=== PATIENT | male | born 1990 | race Caucasian/White ===

== ENCOUNTER 2019-06-28 19:42 | Observation (INO) | payer BC ==
[~2019-06-28 19:42] MED LIST: ISOVUE-370 76%-LOCM 1 ML ONE
[2019-06-28 20:33] LABS: #Basophils 0.1 thou/uL (0.0-0.2); #Eosinphils 0.3 thou/uL (0.0-0.7); #Lymphocytes 2.1 thou/uL (1.20-3.40); #Monocytes 0.5 thou/uL (0.11-0.59); #Neutrophils 3.3 thou/uL (1.40-6.50); %Basophils 0.9 % (0.0-1.0); %Eosinophils 4.2 % (0.0-10.0); %Monocytes 7.7 % (0.0-10.0); %Neutrophils 53.1 % (42.0-75.0); Hemoglobin 16.4 g/dL (14.0-18.0); Mean Corpuscular Hemoglobin 29.6 pg (27.0-31.0); Mean Corpuscular Volume 84.7 fL (78.0-98.0); Mean Platelet Volume 7.9 fL (7.4-10.4); Platelet Count 212 thou/uL (130-400); RBC Distribution Width 11.6 % (11.5-14.5); Red Blood Cell (RBC) Count 5.53 mill/uL (4.70-6.10); White Blood Cell (WBC) Count 6.3 thou/uL (4.8-10.8)
[2019-06-28 20:39] LABS: INR-International Normal Ratio 0.9; PTT 29.3 SEC (22.9-36.1); Prothrombin Time 12.4 SEC (12.0-14.7)
[2019-06-28 20:48] LABS: ALT (SGPT) 30 U/L (8-55); AST (SGOT) 21 U/L (5-34); Albumin 4.6 g/dL (3.5-5.0); Alkaline Phosphatase 96 U/L (40-150); Anion Gap 13 mmol/L (10-20); BUN (Urea Nitrogen) 12 mg/dL (8.9-20.6); Bilirubin, Total 0.4 mg/dL (0.2-1.2); Calc. Creatinine Clearance 0 mL/min (70-130); Calcium 9.9 mg/dL (7.8-10.44); Carbon Dioxide 28 mmol/L (22-29); Chloride 102 mmol/L (98-107); Estimated GFR-MDRD Greater than 90; Globulin 3.1 g/dL (2.4-3.5); Glucose 94 mg/dL (70-105); Protein, Total 7.7 g/dL (6.0-8.3); Sodium 139 mmol/L (136-145)
--- NOTE | 2019-06-28 21:02 | CT ---
BRAIN CT WITHOUT IV CONTRAST: 06/28/19 HISTORY: Headache, dizziness, visual changes. FINDINGS: There is an approximately 3 cm diameter area of abnormal low attenuation change in the posterior righ t frontal lobe with some minimal associated volume loss evidence for an old infarct. No focal mass or midline shift. No acute hemorrhage. Sinuses and mastoids demonstrate some left maxillary sinus mucos al disease although the mastoids are clear. IMPRESSION: Old right posterior frontal infarct with minimal adjacent brain volume loss. Left maxillary sinus muc ashia disease. No acute hemorrhage or other acute process. Findings were discussed with Dr. Porras in the Emergency Room at 8:32 p.m. Code CR POS: PAULA
--- NOTE | 2019-06-28 21:20 | CT ---
CTA HEAD WITH IV CONTRAST AND 3D POSTPROCESSING CTA NECK WITH IV CONTRAST AND 3D POSTPROCESSING 06/28/19 HISTORY: Headache. FINDINGS/IMPRESSION: There is good flow in the carotid and vertebrobasilar systems on both sides. No major branch occlusio n, high grade stenosis or aneurysm formation is seen. Discussed over the telephone with ER physician, Dr. Porras at 9:03 p.m. POS: MICHELLE
--- NOTE | 2019-06-28 22:58 | PDOC.FPRHP ---
- History of Present Illness Chief Complaint: headache and blurred visoin in R eye History of Present Illness: 28 y/o M with a pmhx of ischemic stroke X5 years ago and PE, presents to the ED with a headache that came on suddenly earlier today. He states he sneezed and felt a "pop" in the right side of his head. This caused severe pain on the right side of head, and right eye pain. He c/o blurred vision, dizziness and slurred speech, that is better now. PT denies any confusion, or focal motor deficits/weakness. He states the headache was pulsating in character and now has alleviated almost completely. Pt had a negative CT brain in the ED. - Allergies/Adverse Reactions Allergies Allergy/AdvReac Type Severity Reaction Status Date / Time No Known Drug Allergies Allergy Verified 06/29/19 00:52 - History PMHx: Ischemic CVA X5 years ago. PE X5 years ago in same hospitalization No hx of clotting d/o, states he has been worked up and nothing found. PSHx: none FHx: NO hx of clotting d/o Social: denies smoking tobacco, etoh, or drug use. Quit e-cig X1 week ago. past X2 year smoking hx in college - Review of Systems General: denies: fever/chills Eyes: reports: eye pain (right eye), vision changes (R eye) ENT: reports: nasal congestion, rhinorrhea Respiratory: reports: cough, congestion. denies: shortness of breath, exercise intolerance Cardiovascular: denies: chest pain, palpitation, edema Gastrointestinal: reports: nausea, vomiting. denies: diarrhea, abdominal pain Genitourinary: denies: incontinence Skin: denies: rashes, jaundice Musculoskeletal: denies: pain Neurological: denies: numbness, syncope, seizure, weakness - Vital signs BP: 112/64 HR: 62 RR: 16 Tmax: 99.5 Pox: 98% on RA Wt: 112.85 kg - Physical Exam Constitutional: NAD, awake, alert and oriented, well developed HEENT: normocephalic and atraumatic, PERRLA (R pupil 4 mm, L pupil 3 mm.), EOMI , conjunctiva clear, no scleral icterus, grossly normal hearing, MMM, oropharynx clear, good dention Neck: supple, FROM, trachea midline, no LAD, no JVD Heart: RRR, normal S1/S2, no murmurs/rubs/gallops, pulses present, no edema Lungs: CTAB, no respiratory distress, good air movement, no rales/rhonchi, no wheezing, no retractions Abdomen: soft, non-tender, bowel sounds present, no masses/distention, no hernias Musculoskeletal: normal structure, normal tone, ROM grossly normal Neurological: no focal deficit, CN II-XII intact (R pupil 4 mm, L pupil 3 mm both PERRLA), normal sensation, DTRs 2+ -Neurological: no dysphagia or dysarthria Normal yhzl-ta-punt bilaterally. No dysdiadochokinesia bilaterally Skin: no rash/lesions, good turgor, capillary refill <2 seconds, no jaundice Heme/Lymphatic: no unusual bruising or bleeding, no purpura, no petechia Psychiatric: normal mood and affect, good judgment and insight, intact recent and remote memory FMR H&P: Results - Labs Result Diagrams: 06/28/19 20:22 06/28/19 20:22 Lab results: WBC 6.3 thou/uL (4.8-10.8) 06/28/19 20:22 Hgb 16.4 g/dL (14.0-18.0) 06/28/19 20:22 Hct 46.8 % (42.0-52.0) 06/28/19 20:22 MCV 84.7 fL (78.0-98.0) 06/28/19 20:22 Plt Count 212 thou/uL (130-400) 06/28/19 20:22 Neutrophils % 53.1 % (42.0-75.0) 06/28/19 20:22 Sodium 139 mmol/L (136-145) 06/28/19 20:22 Potassium 4.0 mmol/L (3.5-5.1) 06/28/19 20:22 Chloride 102 mmol/L (98-107) 06/28/19 20:22 Carbon Dioxide 28 mmol/L (22-29) 06/28/19 20:22 BUN 12 mg/dL (8.9-20.6) 06/28/19 20:22 Creatinine 0.93 mg/dL (0.7-1.3) 06/28/19 20:22 Glucose 94 mg/dL (70-105) 06/28/19 20:22 Calcium 9.9 mg/dL (7.8-10.44) 06/28/19 20:22 Total Bilirubin 0.4 mg/dL (0.2-1.2) 06/28/19 20:22 AST 21 U/L (5-34) 06/28/19 20:22 ALT 30 U/L (8-55) 06/28/19 20:22 Alkaline Phosphatase 96 U/L (40-150) 06/28/19 20:22 Creatine Kinase 108 U/L (30-200) 06/28/19 20:22 Serum Total Protein 7.7 g/dL (6.0-8.3) 06/28/19 20:22 Albumin 4.6 g/dL (3.5-5.0) 06/28/19 20:22 - Radiology Interpretation CT scan - head Status: report reviewed by me (no hemorrhage. Old R frontal infarct. L- maxillary sinus mucosa disease.) FMR H&P: A/P - Problem List (1) TIA (transient ischemic attack) Current Visit: Yes Status: Suspected Code(s): G45.9 - TRANSIENT CEREBRAL ISCHEMIC ATTACK, UNSPECIFIED (2) Headache Current Visit: Yes Status: Acute Code(s): R51 - HEADACHE (3) Left maxillary sinus opacification Current Visit: Yes Status: Acute Code(s): R93.0 - ABNORMAL FINDINGS ON DX IMAGING OF SKULL AND HEAD, NEC - Plan 28 y/o admitted to Stroke Observation floor for evaluation of TIA and acute headache. 1. TIA - Resolved symptoms of dysarthria, and blurred vision - Ordered MRI 2. Acute Headache - Acute TIA vs Sinusitis - Tylenol for pain control 3. Sudden onset right eye pain - Right pupil is 4 mm left pupil is 3 mm in size. PERRLA. - vision is back to normal 4. L maxillary sinusitis - could be the cause of headache, but cannot rule out TIA 5. Hx of Ischemic CVA X5 years ago - Pt was on coumadin for X6 months post CVA. - Pt states all previous coagulation disorder workup negative - Coagulation disorder workup warranted 6. Hx of Pulmonary embolus X5 years ago Code status: full code DVT PPX: SCD's Disposition/LOS: admitted to stroke observation stable FMR H&P: Upper Level - Plan Date/Time: 06/28/19 1198 I, [], have evaluated this patient and agree with findings/plan as outlined by internal control consultant resident. Pertinent changes/additions are listed here.
[2019-06-28] MEDS ORDERED: Aspirin 325 MG TAB ONE (23:20)
[2019-06-29] MEDS ORDERED: Acetaminophen 325 MG TAB PO PRN (00:09)
[2019-06-29 00:53] VITALS: BMI 35.6
[2019-06-29 05:40] LABS: Cardiac Risk 2.6 (Less than 4.5)
--- NOTE | 2019-06-29 06:33 | PDOC.FM ---
- Subjective Subjective: Patient was resting comfortably this morning. No new symptoms. Headache has resolved. - Objective MAR Reviewed: Yes Vital Signs & Weight: Vital Signs (12 hours) Temp Pulse Resp BP Pulse Ox 06/29/19 03:25 97.9 F 59 L 16 100/57 L 98 06/28/19 22:36 99.5 F 62 16 112/64 98 Weight Weight 112.854 kg I&O: 06/27/19 06/28/19 06/29/19 06:59 06:59 06:59 Intake Total 100 Balance 100 Result Diagrams: 06/28/19 20:22 06/28/19 20:22 Radiology Reviewed by me: Yes (MRI was negative. Evidence of prior hemorrhagic stroke. Recommend rpt 3-6mo) Phys Exam - Physical Examination Constitutional: NAD HEENT: PERRLA, moist MMs, sclera anicteric Neck: no nodes, supple, full ROM Respiratory: no wheezing, no rales, no rhonchi, clear to auscultation bilateral Cardiovascular: RRR, no significant murmur, no rub Gastrointestinal: soft, non-tender, no distention, positive bowel sounds Musculoskeletal: no edema, pulses present Neurological: non-focal, normal sensation, moves all 4 limbs Psychiatric: normal affect, A&O x 3 Skin: no rash, normal turgor, cap refill <2 seconds Dx/Plan - Plan Plan: 28 y/o admitted to Stroke Observation floor for evaluation of TIA and acute headache. TIA, rule out. - Resolved symptoms of dysarthria, and blurred vision - MRI negative. Evidence of prior hemorrhagic stroke. Acute Headache, resolved Sudden onset right eye pain, resolved L maxillary sinusitis - could be the cause of headache, but cannot rule out TIA Hx of Ischemic CVA X5 years ago - Pt was on coumadin for X6 months post CVA. - Pt states all previous coagulation disorder workup negative - Coagulation disorder workup warranted Hx of Pulmonary embolus X5 years ago Dispo: Stable, observation Code status: full code DVT PPX: SCD's
[2019-06-29] MEDS ORDERED: Aspirin 81 mg Enteric Coated Tablet PO SCH (09:00)
--- NOTE | 2019-06-29 09:43 | MRI ---
BRAIN MRI WITHOUT CONTRAST: Date: 06/29/19 COMPARISON: None. HISTORY: Headache, dizziness, and visual changes. TECHNIQUE: Multiplanar, multisequence MR imaging of the brain provided without contrast. FINDINGS: Diffusion-weighted imaging demonstrates no evidence for acute infarction. There is mucosal thickening involving bilateral maxillary sinuses, left greater than right. Arterial flow-voids at the axial level of the skull base appear grossly unremarkable on the T2-weight ed imaging. On the gradient echo imaging, there is no evidence for intracranial hemorrhage. There is a focal area of signal abnormality within the frontal lobe on the right at the axial level o f the frontal horns of the right lateral ventricle. This focal area of abnormal signal intensity is h eterogeneously hypointense on the T1-weighted imaging and it is hypointense on FLAIR centrally with a peripheral rim of T2 and FLAIR hyperintensity. On T2-weighted imaging, this area is markedly hyperin tense. The gradient echo imaging demonstrates a subtle rim of blooming artifact suggesting peripheral blood products. No significant midline shift or mass effect. IMPRESSION: 1. No evidence for acute infarction. 2. 2.6 cm area of abnormal intra-axial signal intensity within the frontal lobe on the right. This i s felt to most likely be the sequelae of a prior hemorrhagic infarction, as the patient reports hemo rrhagic stroke in 2014 per the provided nodes. As no comparison imaging is available, recommend a fo llow-up brain MRI in 3-6 months, unless a prior examination can be provided to document stability. POS: OFF
[2019-06-29 11:10] LABS: Amphetamine Not Detected (NotDetected); Barbiturates Screen Not Detected (NotDetected); Benzodiazepine Screen Not Detected (NotDetected); Cocaine Metabolite Screen Not Detected (NotDetected); Medtox Control Line Valid? VALID (VALID); Medtox Reader # READER 4; Methadone Not Detected (NotDetected); Methamphetamine Not Detected (NotDetected); Opiate Screen Not Detected (NotDetected); Oxycodone Screen Not Detected (NotDetected); Phencyclidine (PCP) Not Detected (NotDetected); THC/Cannabinoid Screen Not Detected (NotDetected); Tricyclic Screen Not Detected (NotDetected)
[2019-06-29 11:47] VITALS: BP 129/71; TEMP 98.9
--- NOTE | 2019-06-29 11:52 | PRG ---
DATE OF SERVICE: 06/29/2019 Winston is a pleasant 28-year-old man who was admitted with TIA type symptoms. He had a history of hemorrhagic stroke from what sounds like ruptured aneurysm in 2013 in [facility]. This morning, he looks and feels much better. An MRI shows no evidence of an acute infarction. There is a 2.6 cm area of abnormality within the frontal lobe on the right side. This is felt to be sequelae of prior hemorrhagic infarct as stated previously that the patient had in 2013. He is recommended that he have a followup brain MRI in 3 to 6 months. In the event clinically, he looks and feels much better and will be discharged later today. Job ID: [id number]
--- NOTE | 2019-06-29 12:26 | HP ---
HISTORY OF PRESENT ILLNESS: I have examined the patient. I have discussed the case with Dr. Cristela Stubbs and agree with her assessment and plan. Briefly, Dave is a pleasant 28-year-old man with a history of hemorrhagic stroke in 2013, who presented with a "popping noise" in his head after a sneeze. This was followed by throbbing pain and right eye visual blurriness. The patient reports that these symptoms have resolved with time. PHYSICAL EXAMINATION: GENERAL: This morning, he is awake, alert, in no distress. No visual disturbances. EARS, NOSE, AND THROAT: No erythema or exudate. CARDIAC: Heart rhythm and regular. No gallop or murmur noted. LUNGS: Clear. No rales or wheezes. ABDOMEN: Flat and soft without guarding or rebound. NEUROLOGIC: No focal deficits. His vision seems to be grossly intact. LABORATORY DATA: CBC; white count is 6300, hemoglobin is 16.4, hematocrit 46.8 with an MCV of 84.7. Chemistries; sodium 139, potassium 4, chloride 102, bicarb 28, BUN 12, and creatinine 0.93. Liver enzymes normal. ASSESSMENT: Possible transient ischemic attack. PLAN: We will admit, perform CTA, head CT and MRI. Clinically, the patient has improved and stable. Job ID: [id number]
[2019-06-29] MEDS ORDERED: Atorvastatin Calcium 40 MG TAB PO SCH (21:00)
--- NOTE | 2019-07-03 08:27 | DIS ---
DATE OF ADMISSION: 06/28/2019 DATE OF DISCHARGE: 06/29/2019 RESIDENT: Didi Weaver MD CONSULTS: None. PROCEDURES: None. PRIMARY DIAGNOSIS: Transient ischemic attack. SECONDARY DIAGNOSIS: 1. Sinus infection. 2. Acute headache. 3. Sudden onset right eye pain. 4. History of hemorrhagic cerebrovascular accident. 5. History of pulmonary embolus. DISCHARGE MEDICATIONS: None. DISCONTINUED MEDICATIONS: None. HISTORY OF PRESENT ILLNESS: This is a 28-year-old male with a past medical history of hemorrhagic stroke in 2014 with subsequent pulmonary embolism. He presented for acute onset of headache and a popping noise that he heard after he sneezed. He reports throbbing pain and right eye visual blurriness. With his past medical history, he was concerned that he may be having another stroke and decided to come to the ER. He states that his symptoms have fully resolved since arrival. He denies any confusion, neuro deficits or weaknesses, or further headache. In the ED, he had a CT angio and a brain CT, both of which were negative. He had an MRI, which showed no acute changes, and a 2.6 cm area of abnormal intraaxial intensity within the frontal lobe on the right most likely a result of a prior hemorrhagic infarction. Recommended repeat MRI in 3 to 6 months. Overnight, his headache resolved. He never exhibited any focal signs of neurological deficits. He was discharged in stable condition. DISPOSITION: Stable. DISCHARGE INSTRUCTIONS: 1. Location: Home. 2. Diet: Regular. 3. Activity: Ad alexis. 4. Followup: With primary care physician in a month. Job ID: [id number] MTDD
--- NOTE | 2019-07-07 01:27 | EKG ---
Test Reason : Blood Pressure : / mmHG Vent. Rate : 086 BPM Atrial Rate : 086 BPM P-R Int : 146 ms QRS Dur : 080 ms QT Int : 358 ms P-R-T Axes : 043 029 018 degrees QTc Int : 428 ms Normal sinus rhythm Normal ECG Confirmed by TERRENCE NAVARRO ([id number]), fan mail editor YENNIFER HENLEY ([id number]) on 07/07/2019 1:27:06 AM Referred By: Confirmed By:TERRENCE NAVARRO
== END 2019-06-29 13:05 | disposition home or self-care (01) ==
LOC: ERS 19:42 → 2SE 21:42
PROVIDERS: ADMIT Family Medicine; ATTEND Family Medicine
DX: G45.9 Transient cerebral ischemic attack, unspecified (principal); J32.0 Chronic maxillary sinusitis; H57.11 Ocular pain, right eye; H53.8 Other visual disturbances; Z86.711 Personal history of pulmonary embolism; Z86.73 Personal history of transient ischemic attack (TIA), and cerebral infarction without residual deficits; Z87.891 Personal history of nicotine dependence
CPT/HCPCS: 36415; 36416; 70450; 70496; 70498; 70551; 80053; 80061; 80306; 82550; 84484; 85025; 85610; 85652; 85730; 93005; 96360; G0378; Q9966

== ENCOUNTER 2020-01-16 13:10 | Emergency (ER) | payer BC ==
--- NOTE | 2020-01-16 13:44 | RAD ---
EXAM: Chest one view: HISTORY: Chest pain COMPARISON: None FINDINGS: Heart size: Within normal limits. Lungs: Clear of acute process. No evidence for confluent pneumonia, pleural effusion, acute edema, or pneumothorax, or other signifi cant acute process. IMPRESSION: No significant acute intrathoracic disease.
[2020-01-16] MEDS ORDERED: Aspirin Chewable 81 MG TAB ONE (13:47)
[2020-01-16 13:49] LABS: #Eosinphils 0.1 thou/uL (0.0-0.7); #Lymphocytes 1.5 thou/uL (1.20-3.40); #Monocytes 0.4 thou/uL (0.11-0.59); #Neutrophils 3.3 thou/uL (1.40-6.50); %Basophils 0.3 % (0.0-1.0); %Eosinophils 1.6 % (0.0-10.0); %Lymphocytes 28.7 % (21.0-51.0); %Monocytes 8.2 % (0.0-10.0); %Neutrophils 61.3 % (42.0-75.0); Hemoglobin 15.5 g/dL (14.0-18.0); Mean Corpuscular HGB CONC 33.9 g/dL (32.0-36.0); Mean Corpuscular Volume 85.6 fL (78.0-98.0); Mean Platelet Volume 8.4 fL (7.4-10.4); Platelet Count 207 thou/uL (130-400); RBC Distribution Width 11.8 % (11.5-14.5); Red Blood Cell (RBC) Count 5.35 mill/uL (4.70-6.10); White Blood Cell (WBC) Count 5.3 thou/uL (4.8-10.8)
[2020-01-16] MEDS ORDERED: Iopamidol 370 76% 100 ML VIAL ONE (13:55)
[2020-01-16 14:10] LABS: ALT (SGPT) 31 U/L (8-55); AST (SGOT) 17 U/L (5-34); Albumin 4.4 g/dL (3.5-5.0); Alkaline Phosphatase 82 U/L (40-110); Anion Gap 12 mmol/L (10-20); BUN (Urea Nitrogen) 9 mg/dL (8.9-20.6); Bilirubin, Total 0.7 mg/dL (0.2-1.2); CK (CPK) 110 U/L (30-200); Calc. Creatinine Clearance 0 mL/min (70-130); Calcium 9.2 mg/dL (7.8-10.44); Carbon Dioxide 23 mmol/L (22-29); Chloride 108 mmol/L (98-107); Estimated GFR-MDRD Greater than 90; Globulin 2.6 g/dL (2.4-3.5); Glucose 88 mg/dL (70-105); Lipase 9 U/L (8-78); Potassium 3.7 mmol/L (3.5-5.1); Sodium 139 mmol/L (136-145)
--- NOTE | 2020-01-16 15:23 | CT ---
CT PULMONARY ANGIOGRAM WITH IV CONTRAST AND 3D POST PROCESSING: HISTORY: Chest pain. FINDINGS: There is good contrast opacification of the pulmonary arterial vasculature without filling defects to suggest pulmonary embolism. No aneurysmal dilatation of the thoracic aorta is seen. No pleural or pericardial effusions are identified. No pneumothoraces, lobar consolidation, or lung nodule/masses are identified. Bony structures are unremarkable. Upper abdominal tomograms demonstrate a tiny nono bstructing left renal calculus. IMPRESSION: No CT evidence of pulmonary embolism. POS: [facility]
[2020-01-16 17:06] LABS: Troponin I Less than 0.010 ng/mL (< 0.028)
== END 2020-01-16 17:55 | disposition home or self-care (01) ==
LOC: ERS 13:10
DX: R07.9 Chest pain, unspecified (principal); F17.290 Nicotine dependence, other tobacco product, uncomplicated; Z86.73 Personal history of transient ischemic attack (TIA), and cerebral infarction without residual deficits
CPT/HCPCS: 36415; 71045; 71275; 80053; 82550; 83690; 84484; 85025; 85379; 93005; Q9967

== ENCOUNTER 2021-01-11 13:53 | Emergency (ER) | payer OTHER ==
[~2021-01-11 13:53] MED LIST changes: -ISOVUE-370 76%-LOCM 1 ML ONE; +Iopamidol-370 76% 500 ML 1 ML ONE
[2021-01-11 14:22] LABS: #Lymphocytes 0.4 thou/uL (1.20-3.40); #Monocytes 0.4 thou/uL (0.11-0.59); #Neutrophils 11.4 thou/uL (1.40-6.50); %Basophils 0.3 % (0.0-1.0); %Eosinophils 0.1 % (0.0-10.0); %Lymphocytes 3.4 % (21.0-51.0); %Monocytes 3.5 % (0.0-10.0); %Neutrophils 92.6 % (42.0-75.0); Hemoglobin 17.5 g/dL (14.0-18.0); Mean Corpuscular HGB CONC 34.3 g/dL (32.0-36.0); Mean Corpuscular Hemoglobin 29.3 pg (27.0-31.0); Mean Corpuscular Volume 85.5 fL (78.0-98.0); Mean Platelet Volume 8.6 fL (7.4-10.4); Platelet Count 203 thou/uL (130-400); Red Blood Cell (RBC) Count 5.96 mill/uL (4.70-6.10); White Blood Cell (WBC) Count 12.3 thou/uL (4.8-10.8)
[2021-01-11] MEDS ORDERED: Acetaminophen 325 MG TAB ONE (14:24)
[2021-01-11] MEDS ORDERED: diphenhydrAMINE 50 MG/ML VIAL ONE (14:24)
[2021-01-11] MEDS ORDERED: Metoclopramide 10 MG/10 ML UDCUP ONE (14:24)
[2021-01-11] MEDS ORDERED: Piperacillin/Tazobactam 2.25 GM VIAL ONE (14:24)
[2021-01-11] MEDS ORDERED: Ketorolac Tromethamine 30 MG/ML VIAL ONE (14:24)
[2021-01-11] MEDS ORDERED: Piperacillin/Tazobactam 4.5 GM VIAL ONE (14:27)
[2021-01-11] MEDS ORDERED: Metoclopramide HCl 10 MG/2 ML VIAL ONE (14:27)
[2021-01-11 14:29] LABS: PTT 26.8 sec (22.9-36.1); Prothrombin Time 13.6 sec (12.0-14.7)
[2021-01-11 14:44] LABS: ALT (SGPT) 51 U/L (8-55); AST (SGOT) 23 U/L (5-34); Albumin 4.5 g/dL (3.5-5.0); Alkaline Phosphatase 101 U/L (40-110); Anion Gap 14 mmol/L (10-20); BUN (Urea Nitrogen) 16 mg/dL (8.9-20.6); Bilirubin, Total 0.8 mg/dL (0.2-1.2); Calc. Creatinine Clearance 0 mL/min (70-130); Calcium 9.5 mg/dL (7.8-10.44); Carbon Dioxide 24 mmol/L (22-29); Chloride 104 mmol/L (98-107); Globulin 3.8 g/dL (2.4-3.5); Glucose 127 mg/dL (70-105); Lipase 12 U/L (8-78); Potassium 4.1 mmol/L (3.5-5.1); Protein, Total 8.3 g/dL (6.0-8.3); Sodium 138 mmol/L (136-145)
[2021-01-11 15:09] LABS: Bacteria/HPF None Seen HPF (None Seen); Bilirubin Negative (Negative); Blood, Urine Negative (Negative); Clarity Clear (Clear); Glucose, Urine (Dipstick) Normal (Negative); Ketone, Urine Trace mg/dL (Negative); Leukocyte Negative Leu/uL (Negative); Nitrite Negative (Negative); Protein, Urine (Dipstick) 30 mg/dL (Neg-Trace); RBC/HPF 0-3 HPF (0-3); Specific Gravity, Urine 1.029 (1.002-1.036); Squamous Epithelial 0-3 HPF (0-3); Urobilinogen Normal mg/dL (Less than 2); WBC/HPF 0-3 HPF (0-3)
== END 2021-01-11 16:28 | disposition home or self-care (01) ==
LOC: ERS 13:53
DX: K52.9 Noninfective gastroenteritis and colitis, unspecified (principal); Z86.73 Personal history of transient ischemic attack (TIA), and cerebral infarction without residual deficits; Z87.891 Personal history of nicotine dependence
CPT/HCPCS: 70450; 71045; 74177; 80053; 81003; 81015; 83605; 83690; 84484; 85025; 85610; 85730; 87086; 93005; 94760; 96365; 96375; J1200; J1885; J2543; J2765; Q9967

== ENCOUNTER 2021-01-14 12:04 | Emergency (ER) | payer OTHER ==
[2021-01-14 12:59] LABS: Mean Corpuscular HGB CONC 34.4 g/dL (32.0-36.0); Mean Corpuscular Hemoglobin 29.6 pg (27.0-31.0); Mean Corpuscular Volume 85.8 fL (78.0-98.0); Mean Platelet Volume 7.9 fL (7.4-10.4); Platelet Count 187 thou/uL (130-400); RBC Distribution Width 11.7 % (11.5-14.5); Red Blood Cell (RBC) Count 5.41 mill/uL (4.70-6.10); White Blood Cell (WBC) Count 2.6 thou/uL (4.8-10.8)
[2021-01-14] MEDS ORDERED: Dexamethasone 10 MG/ML VIAL ONE (13:14)
[2021-01-14 13:22] LABS: ALT (SGPT) 32 U/L (8-55); AST (SGOT) 22 U/L (5-34); Albumin 4.1 g/dL (3.5-5.0); Alkaline Phosphatase 77 U/L (40-110); Anion Gap 13 mmol/L (10-20); BUN (Urea Nitrogen) 7 mg/dL (8.9-20.6); Bilirubin, Total 0.5 mg/dL (0.2-1.2); CK (CPK) 96 U/L (30-200); Calc. Creatinine Clearance 0 mL/min (70-130); Carbon Dioxide 25 mmol/L (22-29); Chloride 105 mmol/L (98-107); Globulin 3.5 g/dL (2.4-3.5); Glucose 96 mg/dL (70-105); Lipase 8 U/L (8-78); Potassium 3.9 mmol/L (3.5-5.1); Protein, Total 7.6 g/dL (6.0-8.3); Sodium 139 mmol/L (136-145)
[2021-01-14 13:34] LABS: Band 21 % (5-11); Large Platelets SLIGHT; Lymphocytes 29 % (21-51); MDiff Complete? YES; Monocytes 13 % (0-10); Neutrophil 35 % (42-75); Platelet Morphology Comment Appears Adequate; RBC Morphology Normal; Reactive Lymphocytes 2 % (0-10)
== END 2021-01-14 14:25 | disposition home or self-care (01) ==
LOC: ERS 12:04
DX: J02.9 Acute pharyngitis, unspecified (principal); M79.10 Myalgia, unspecified site; Z20.822 Contact with and (suspected) exposure to COVID-19; Z86.73 Personal history of transient ischemic attack (TIA), and cerebral infarction without residual deficits; Z87.891 Personal history of nicotine dependence
CPT/HCPCS: 71045; 80053; 82550; 83690; 83880; 84484; 85025; 85379; 93005; 96374; J1100

== ENCOUNTER 2021-01-26 11:45 | Inpatient (IN) | payer OTHER ==
[2021-01-26 12:31] LABS: #Lymphocytes 1.3 thou/uL (1.20-3.40); #Monocytes 0.8 thou/uL (0.11-0.59); #Neutrophils 6.4 thou/uL (1.40-6.50); %Basophils 0.2 % (0.0-1.0); %Eosinophils 0.3 % (0.0-10.0); %Lymphocytes 15.3 % (21.0-51.0); %Monocytes 9.7 % (0.0-10.0); %Neutrophils 74.4 % (42.0-75.0); Hemoglobin 15.1 g/dL (14.0-18.0); Mean Corpuscular HGB CONC 32.9 g/dL (32.0-36.0); Mean Corpuscular Hemoglobin 27.8 pg (27.0-31.0); Mean Corpuscular Volume 84.4 fL (78.0-98.0); Mean Platelet Volume 8.4 fL (7.4-10.4); Platelet Count 239 thou/uL (130-400); RBC Distribution Width 11.4 % (11.5-14.5); Red Blood Cell (RBC) Count 5.44 mill/uL (4.70-6.10); White Blood Cell (WBC) Count 8.7 thou/uL (4.8-10.8)
[2021-01-26 12:43] LABS: ALT (SGPT) 23 U/L (8-55); AST (SGOT) 13 U/L (5-34); Albumin 4.1 g/dL (3.5-5.0); Alkaline Phosphatase 92 U/L (40-110); Anion Gap 12 mmol/L (10-20); BUN (Urea Nitrogen) 6 mg/dL (8.9-20.6); Bilirubin, Total 1.3 mg/dL (0.2-1.2); Calc. Creatinine Clearance 0 mL/min (70-130); Calcium 9.1 mg/dL (7.8-10.44); Carbon Dioxide 25 mmol/L (22-29); Chloride 105 mmol/L (98-107); Globulin 3.8 g/dL (2.4-3.5); Glucose 104 mg/dL (70-105); Potassium 3.9 mmol/L (3.5-5.1); Protein, Total 7.9 g/dL (6.0-8.3); Sodium 138 mmol/L (136-145)
[2021-01-26] MEDS ORDERED: Morphine 4 MG/ML VIAL ONE ×2 (12:49→15:01)
[2021-01-26 12:55] LABS: INR-International Normal Ratio 1.1; PTT 31.3 sec (22.9-36.1); Prothrombin Time 14.4 sec (12.0-14.7)
[2021-01-26] MEDS ORDERED: Dexamethasone 10 MG/ML VIAL ONE (15:01)
[2021-01-26] MEDS ORDERED: Enoxaparin Sodium 60 MG/0.6 ML SYRINGE ONE (15:01)
[2021-01-26] MEDS ORDERED: Senokot S 8.6-50 MG TAB PO PRN (15:03)
[2021-01-26] MEDS ORDERED: Acetaminophen 325 MG TAB PO PRN (15:03)
[2021-01-26 15:36] LABS: Troponin I 0.011 ng/mL (< 0.028)
[2021-01-26] MEDS ORDERED: Thiamine 100 MG TAB PO SCH (16:00)
[2021-01-26] MEDS ORDERED: Zinc Sulfate 220 MG CAP PO SCH (16:00)
[2021-01-26] MEDS ORDERED: Cholecalciferol 1,000 UNITS (25 MCG) TAB PO SCH (16:00)
[2021-01-26] MEDS ORDERED: Ascorbic Acid 500 mg Chewable Tablet PO SCH (16:00)
[2021-01-26 16:27] LABS: Lactic Acid 0.7 mmol/L (0.5-2.2)
[2021-01-26 18:13] VITALS: BMI 37.2
[2021-01-26] MEDS: Lidocaine 5% Patch TD SCH (18:22)
[2021-01-26] MEDS: Sodium Chloride 0.9% 1,000 ML IV SCH (18:22)
[2021-01-26 18:29] LABS: Troponin I Less than 0.010 ng/mL (< 0.028)
[2021-01-26] MEDS: Famotidine/PF 20 mg/2ml Vial SLOW IVP SCH (21:01)
[2021-01-26] MEDS: HYDROcodone/Acetaminophen 5/325 mg Tablet PO PRN (21:06)
[2021-01-26] MEDS ORDERED: Morphine 2 MG/ML VIAL SLOW IVP SCH (23:00)
[2021-01-27] MEDS: Enoxaparin Sodium 120 MG/0.8 ML SYRINGE SC SCH ×2 (02:11→15:07)
[2021-01-27] MEDS: Sodium Chloride 0.9% 1,000 ML IV SCH ×3 (02:11→22:12)
[2021-01-27 05:04] LABS: #Basophils 0.2 thou/uL (0.0-0.2); #Lymphocytes 0.7 thou/uL (1.20-3.40); #Monocytes 0.9 thou/uL (0.11-0.59); #Neutrophils 9.1 thou/uL (1.40-6.50); %Basophils 1.6 % (0.0-1.0); %Monocytes 8.2 % (0.0-10.0); %Neutrophils 84.2 % (42.0-75.0); Hemoglobin 13.5 g/dL (14.0-18.0); Mean Corpuscular HGB CONC 33.5 g/dL (32.0-36.0); Mean Corpuscular Hemoglobin 28.3 pg (27.0-31.0); Mean Corpuscular Volume 84.4 fL (78.0-98.0); Mean Platelet Volume 8.2 fL (7.4-10.4); Platelet Count 216 thou/uL (130-400); RBC Distribution Width 11.1 % (11.5-14.5); Red Blood Cell (RBC) Count 4.78 mill/uL (4.70-6.10); White Blood Cell (WBC) Count 10.8 thou/uL (4.8-10.8)
[2021-01-27] MEDS: Transdermal Patch Removal TOP SCH (05:21)
[2021-01-27 05:26] LABS: Anion Gap 11 mmol/L (10-20); BUN (Urea Nitrogen) 8 mg/dL (8.9-20.6); Calc. Creatinine Clearance 240 mL/min (70-130); Calcium 8.7 mg/dL (7.8-10.44); Carbon Dioxide 23 mmol/L (22-29); Chloride 105 mmol/L (98-107); Glucose 153 mg/dL (70-105); Potassium 4.2 mmol/L (3.5-5.1); Sodium 135 mmol/L (136-145)
[2021-01-27] MEDS: Ascorbic Acid 500 mg Chewable Tablet PO SCH (08:49)
[2021-01-27] MEDS: Zinc Sulfate 220 MG CAP PO SCH (08:50)
[2021-01-27] MEDS: Famotidine/PF 20 mg/2ml Vial SLOW IVP SCH ×2 (08:50→19:58)
[2021-01-27] MEDS: Cholecalciferol 1,000 UNITS (25 MCG) TAB PO SCH (08:51)
[2021-01-27] MEDS ORDERED: Thiamine 100 MG TAB PO SCH (09:00)
[2021-01-27] MEDS ORDERED: Dexamethasone 6 MG in Sodium Chloride 0.9% 50 ML IVPB SCH (09:00)
[2021-01-27] MEDS: HYDROcodone/Acetaminophen 7.5/325 mg Tablet PO PRN ×2 (11:55→17:12)
[2021-01-27] MEDS: Lidocaine 5% Patch TD SCH (15:07)
[2021-01-27] MEDS ORDERED: Ivermectin 3 MG TAB PO SCH (16:30)
[2021-01-27] MEDS: methylPREDNISolone Sod Succ/PF 125 MG in Sodium Chloride 0.9% 250 ML 250 ML IVPB SCH (17:13)
[2021-01-27] MEDS: Colchicine 0.6 MG TAB PO SCH (19:59)
[2021-01-28] MEDS: Transdermal Patch Removal TOP SCH (04:43)
[2021-01-28 05:20] LABS: Hemoglobin 13.9 g/dL (14.0-18.0); Platelet Count 236 thou/uL (130-400)
[2021-01-28 05:41] LABS: Calc. Creatinine Clearance 246 mL/min (70-130)
[2021-01-28] MEDS ORDERED: Enoxaparin Sodium 120 MG/0.8 ML SYRINGE SC SCH ×2 (06:00→21:00)
[2021-01-28] MEDS: Cholecalciferol 1,000 UNITS (25 MCG) TAB PO SCH (07:46)
[2021-01-28] MEDS: Aspirin Chewable 81 MG TAB PO SCH (07:47)
[2021-01-28] MEDS: Zinc Sulfate 220 MG CAP PO SCH (07:47)
[2021-01-28] MEDS: Colchicine 0.6 MG TAB PO SCH ×2 (07:47→20:41)
[2021-01-28] MEDS: Ascorbic Acid 500 mg Chewable Tablet PO SCH (07:47)
[2021-01-28] MEDS: Famotidine/PF 20 mg/2ml Vial SLOW IVP SCH (07:48)
[2021-01-28 08:30] LABS: Anion Gap 11 mmol/L (10-20); BUN (Urea Nitrogen) 8 mg/dL (8.9-20.6); Calc. Creatinine Clearance 253 mL/min (70-130); Calcium 8.9 mg/dL (7.8-10.44); Carbon Dioxide 24 mmol/L (22-29); Chloride 109 mmol/L (98-107); Glucose 121 mg/dL (70-105); Magnesium 2.3 mg/dL (1.6-2.6); Potassium 3.8 mmol/L (3.5-5.1); Sodium 140 mmol/L (136-145)
[2021-01-28] MEDS ORDERED: Albuterol 200 PUFF (6.7GM INHALER) INH PRN (08:52)
[2021-01-28] MEDS ORDERED: Famotidine 20 MG TAB PO SCH (09:00)
[2021-01-28] MEDS ORDERED: Multivit, Therapeutic 1 TAB PO SCH (09:00)
[2021-01-28] MEDS: guaiFENesin ER 600 MG TAB PO SCH ×2 (09:17→20:41)
[2021-01-28] MEDS: Sodium Chloride 0.9% 1,000 ML IV SCH (10:47)
[2021-01-28] MEDS: Albuterol 200 PUFF (6.7GM INHALER) INH SCH ×4 (11:14→20:00)
[2021-01-28] MEDS: Sodium Chloride 0.65% Nasal 44 ML BOT EA NARE SCH ×2 (17:33→20:00)
[2021-01-28] MEDS: methylPREDNISolone Sod Succ/PF 125 MG in Sodium Chloride 0.9% 250 ML 250 ML IVPB SCH (17:33)
[2021-01-28] MEDS: Famotidine 20 MG TAB PO SCH (19:59)
[2021-01-29] MEDS: Albuterol 200 PUFF (6.7GM INHALER) INH SCH ×4 (02:30→18:30)
[2021-01-29] MEDS: Transdermal Patch Removal TOP SCH (04:00)
[2021-01-29 05:29] LABS: #Lymphocytes 0.8 thou/uL (1.20-3.40); #Monocytes 0.6 thou/uL (0.11-0.59); #Neutrophils 11.8 thou/uL (1.40-6.50); %Eosinophils 0.1 % (0.0-10.0); %Lymphocytes 5.8 % (21.0-51.0); %Monocytes 4.6 % (0.0-10.0); %Neutrophils 89.5 % (42.0-75.0); Hemoglobin 13.5 g/dL (14.0-18.0); Mean Corpuscular HGB CONC 32.4 g/dL (32.0-36.0); Mean Corpuscular Hemoglobin 27.7 pg (27.0-31.0); Mean Corpuscular Volume 85.7 fL (78.0-98.0); Platelet Count 282 thou/uL (130-400); RBC Distribution Width 11.3 % (11.5-14.5); Red Blood Cell (RBC) Count 4.85 mill/uL (4.70-6.10); White Blood Cell (WBC) Count 13.2 thou/uL (4.8-10.8)
[2021-01-29 05:58] LABS: ALT (SGPT) 54 U/L (8-55); AST (SGOT) 24 U/L (5-34); Albumin 3.1 g/dL (3.5-5.0); Alkaline Phosphatase 68 U/L (40-110); Anion Gap 13 mmol/L (10-20); BUN (Urea Nitrogen) 6 mg/dL (8.9-20.6); Bilirubin, Total 0.4 mg/dL (0.2-1.2); CRP (Inflammatory) 2.44 mg/dL (= or < 0.5); Calc. Creatinine Clearance 253 mL/min (70-130); Carbon Dioxide 24 mmol/L (22-29); Chloride 108 mmol/L (98-107); Globulin 3.4 g/dL (2.4-3.5); Glucose 129 mg/dL (70-105); Magnesium 2.3 mg/dL (1.6-2.6); Potassium 4.2 mmol/L (3.5-5.1); Protein, Total 6.5 g/dL (6.0-8.3); Sodium 141 mmol/L (136-145)
[2021-01-29] MEDS ORDERED: Enoxaparin Sodium 120 MG/0.8 ML SYRINGE SC SCH (08:00)
[2021-01-29] MEDS: Cholecalciferol 1,000 UNITS (25 MCG) TAB PO SCH (08:12)
[2021-01-29] MEDS: Aspirin Chewable 81 MG TAB PO SCH (08:12)
[2021-01-29] MEDS: Zinc Sulfate 220 MG CAP PO SCH (08:12)
[2021-01-29] MEDS: guaiFENesin ER 600 MG TAB PO SCH ×2 (08:12→20:07)
[2021-01-29] MEDS: Colchicine 0.6 MG TAB PO SCH ×2 (08:12→20:07)
[2021-01-29] MEDS: Famotidine 20 MG TAB PO SCH ×2 (08:12→20:07)
[2021-01-29] MEDS: Ascorbic Acid 500 mg Chewable Tablet PO SCH (08:12)
[2021-01-29] MEDS: Sodium Chloride 0.65% Nasal 44 ML BOT EA NARE SCH ×3 (08:13→20:09)
[2021-01-29] MEDS ORDERED: Multivit, Therapeutic 1 TAB PO SCH (09:00)
[2021-01-29] MEDS ORDERED: Apixaban 5 MG TAB PO SCH ×2 (09:00→21:00)
[2021-01-29] MEDS: methylPREDNISolone Sod Succ/PF 125 MG in Sodium Chloride 0.9% 250 ML 250 ML IVPB SCH (17:23)
[2021-01-29] MEDS: HYDROcodone/Acetaminophen 5/325 mg Tablet PO PRN (18:42)
[2021-01-29 21:22] VITALS: BP 135/81
[2021-01-29 22:01] VITALS: TEMP 98.6
[2021-01-30] MEDS: Albuterol 200 PUFF (6.7GM INHALER) INH SCH (02:52)
== END 2021-01-29 23:07 | disposition short-term general hospital (02) | DRG 177 ==
LOC: ERS 11:45 → 2SW 14:00
PROVIDERS: ADMIT Internal Medicine; ATTEND Internal Medicine
PROC: 8E0ZXY6 Isolation (ICD-10-PCS; principal; 2021-01-26)
DX: U07.1 COVID-19 (principal); J96.01 Acute respiratory failure with hypoxia; J12.82 Pneumonia due to coronavirus disease 2019; I26.99 Other pulmonary embolism without acute cor pulmonale; R04.2 Hemoptysis; E66.9 Obesity, unspecified; F17.200 Nicotine dependence, unspecified, uncomplicated; I51.9 Heart disease, unspecified; Z86.73 Personal history of transient ischemic attack (TIA), and cerebral infarction without residual deficits; Z82.49 Family history of ischemic heart disease and other diseases of the circulatory system; Z84.89 Family history of other specified conditions; Z68.37 Body mass index [BMI] 37.0-37.9, adult; Z86.711 Personal history of pulmonary embolism
CPT/HCPCS: 36415; 71045; 71275; 80048; 80053; 80061; 82565; 82728; 83036; 83605; 83735; 83880; 84145; 84484; 85014; 85018; 85025; 85049; 85379; 85610; 85730; 86140; 86787; 93005; 96372; 96374; 96375; 96376; J1100; J1650; J2270; J2930; J7050; S0028

== ENCOUNTER 2021-09-13 08:16 | Outpatient (CLI) | payer OTHER | END 2021-09-13 08:17 | disposition home or self-care (01) | LOC: RAD 08:16 | PROVIDERS: ATTEND Family Medicine | DX: R06.00 Dyspnea, unspecified (principal) | CPT/HCPCS: 71046 ==

== ENCOUNTER 2021-09-23 01:11 | Emergency (ER) | payer OTHER ==
[2021-09-23 01:40] LABS: #Eosinphils 0.1 thou/uL (0.0-0.7); #Lymphocytes 1.4 thou/uL (1.20-3.40); #Monocytes 0.6 thou/uL (0.11-0.59); #Neutrophils 4.8 thou/uL (1.40-6.50); %Basophils 0.3 % (0.0-1.0); %Eosinophils 1.9 % (0.0-10.0); %Lymphocytes 20.1 % (21.0-51.0); %Monocytes 8.1 % (0.0-10.0); %Neutrophils 69.6 % (42.0-75.0); Hemoglobin 15.3 g/dL (14.0-18.0); Mean Corpuscular HGB CONC 34.2 g/dL (32.0-36.0); Mean Corpuscular Hemoglobin 29.7 pg (27.0-31.0); Mean Corpuscular Volume 86.9 fL (78.0-98.0); Mean Platelet Volume 7.6 fL (7.4-10.4); Platelet Count 204 thou/uL (130-400); Red Blood Cell (RBC) Count 5.16 mill/uL (4.70-6.10); White Blood Cell (WBC) Count 6.9 thou/uL (4.8-10.8)
[2021-09-23 01:47] LABS: PTT 35.4 sec (22.9-36.1); Prothrombin Time 13.1 sec (12.0-14.7)
[2021-09-23] MEDS ORDERED: Morphine 4 MG/ML VIAL ONE ×2 (01:55→04:10)
[2021-09-23] MEDS ORDERED: Ondansetron PF 4 MG/2 ML Vial ONE (01:55)
[2021-09-23 02:01] LABS: ALT (SGPT) 33 U/L (8-55); AST (SGOT) 17 U/L (5-34); Albumin 3.9 g/dL (3.5-5.0); Alkaline Phosphatase 88 U/L (40-110); Anion Gap 11 mmol/L (10-20); BUN (Urea Nitrogen) 10 mg/dL (8.9-20.6); Bilirubin, Total 0.5 mg/dL (0.2-1.2); Calc. Creatinine Clearance 0 mL/min (70-130); Calcium 9.5 mg/dL (7.8-10.44); Carbon Dioxide 25 mmol/L (22-29); Chloride 104 mmol/L (98-107); Globulin 3.3 g/dL (2.4-3.5); Glucose 105 mg/dL (70-105); Potassium 3.9 mmol/L (3.5-5.1); Protein, Total 7.2 g/dL (6.0-8.3); Sodium 136 mmol/L (136-145)
[2021-09-23 04:45] LABS: Bilirubin Negative (Negative); Blood, Urine Negative (Negative); Clarity Clear (Clear); Glucose, Urine (Dipstick) Normal (Negative); Ketone, Urine Negative (Negative); Leukocyte Negative Leu/uL (Negative); Nitrite Negative (Negative); Protein, Urine (Dipstick) Negative (Neg-Trace); Specific Gravity, Urine 1.006 (1.002-1.036); Urobilinogen Normal mg/dL (Less than 2); pH, Urine 5.5 (5.0-9.0)
== END 2021-09-23 05:30 | disposition home or self-care (01) ==
LOC: ERS 01:11
DX: K92.0 Hematemesis (principal); Z86.73 Personal history of transient ischemic attack (TIA), and cerebral infarction without residual deficits
CPT/HCPCS: 36415; 71045; 74177; 80053; 81003; 83690; 85025; 85610; 85730; 86850; 86900; 86901; 93005; 96374; 96375; 96376; J2270; J2405

== ENCOUNTER 2021-09-23 11:54 | Emergency (ER) | payer OTHER ==
[2021-09-23] MEDS ORDERED: HYDROcodone/Acetaminophen 10/325 mg Tablet ONE (12:21)
== END 2021-09-23 13:06 | disposition home or self-care (01) ==
LOC: ERS 11:54
DX: R10.13 Epigastric pain (principal); Z86.73 Personal history of transient ischemic attack (TIA), and cerebral infarction without residual deficits; Z86.711 Personal history of pulmonary embolism; Z79.899 Other long term (current) drug therapy; K92.0 Hematemesis
CPT/HCPCS: 36415; 71045; 74177; 80053; 81003; 83690; 85025; 85610; 85730; 86850; 86900; 86901; 93005; 96374; 96375; 96376; 99281; J2270; J2405

== ENCOUNTER 2021-09-27 11:46 | Outpatient (CLI) | payer OTHER ==
[2021-09-27] MEDS ORDERED: Morphine 4 MG/ML VIAL ONE (13:51)
[2021-09-27] MEDS ORDERED: Sodium Chloride 0.9% 20 ML ONE (13:51)
== END 2021-09-27 11:47 | disposition home or self-care (01) ==
LOC: NM 11:46
PROVIDERS: ATTEND Family Medicine
DX: R10.84 Generalized abdominal pain (principal)
CPT/HCPCS: 78227; A9537; J2270

== ENCOUNTER 2021-10-05 14:01 | Outpatient (CLI) | payer OTHER ==
[2021-10-05 16:02] LABS: #Eosinphils 0.1 10x3/uL (0.0-0.5); #Monocytes 0.5 10x3/uL (0.0-1.1); #Neutrophils 3.5 10x3/uL (1.5-8.4); %Basophils 0.4 % (0.0-2.0); %Eosinophils 2.3 % (0.0-6.0); %Lymphocytes 25.4 % (18.0-47.0); %Neutrophils 62.7 % (40.0-75.0); Hemoglobin 16.5 g/dL (13.5-17.5); Mean Corpuscular HGB CONC 33.5 g/dL (32.0-36.0); Mean Corpuscular Hemoglobin 28.4 pg (27.0-33.0); Mean Corpuscular Volume 84.7 fl (81.2-95.1); Mean Platelet Volume 10.9 fl (7.4-10.4); Platelet Count 238 10x3/uL (150-450); RBC Distribution Width 12.4 % (11.5-14.5); Red Blood Cell (RBC) Count 5.81 10x6/uL (4.32-5.72); White Blood Cell (WBC) Count 5.6 10x3/uL (3.5-10.5)
[2021-10-05 16:08] LABS: ALT (SGPT) 37 U/L (8-55); AST (SGOT) 17 U/L (5-34); Albumin 4.7 g/dL (3.5-5.0); Alkaline Phosphatase 73 U/L (40-110); Anion Gap 13 mmol/L (10-20); BUN (Urea Nitrogen) 7 mg/dL (8.9-20.6); Bilirubin, Direct 0.4 mg/dL (0.1-0.3); Bilirubin, Total 0.8 mg/dL (0.2-1.2); Calc. Creatinine Clearance 0 mL/min (70-130); Carbon Dioxide 28 mmol/L (22-29); Chloride 104 mmol/L (98-107); Globulin 3.4 g/dL (2.4-3.5); Glucose 79 mg/dL (70-105); Potassium 4.7 mmol/L (3.5-5.1); Protein, Total 8.1 g/dL (6.0-8.3); Sodium 140 mmol/L (136-145)
[2021-10-06 11:24] LABS: SARS-CoV-2 PCR by NAA Not Detected (NotDetected)
== END 2021-10-05 14:02 | disposition home or self-care (01) ==
LOC: LABBT 14:01
PROVIDERS: ATTEND Surgery
DX: Z01.812 Encounter for preprocedural laboratory examination (principal); K81.1 Chronic cholecystitis; R93.5 Abnormal findings on diagnostic imaging of other abdominal regions, including retroperitoneum; Z20.822 Contact with and (suspected) exposure to COVID-19
CPT/HCPCS: 80053; 80076; 85025; U0003; U0005

== ENCOUNTER 2021-10-06 11:08 | Day surgery (SDC) | payer OTHER ==
[2021-10-05 13:21] VITALS: BMI 33.7
[2021-10-06] MEDS ORDERED: Bupivacaine 0.25% 10 ML VIAL ONE (12:04)
[2021-10-06] MEDS ORDERED: Fentanyl 250 MCG/5 ML VIAL ONE (12:24)
[2021-10-06] MEDS ORDERED: Midazolam HCl 2 mg/2 ml Vial ONE ×2 (12:24→12:29)
[2021-10-06] MEDS ORDERED: cefOXitin Sodium/Dextrose 2 GM/50 ML BAG ONE (12:29)
[2021-10-06] MEDS ORDERED: Ketorolac Tromethamine 30 MG/ML VIAL ONE (12:44)
[2021-10-06] MEDS ORDERED: Lidocaine 1% PF 5 ML VIAL ONE (12:44)
[2021-10-06] MEDS ORDERED: Dexamethasone 20 MG/5 ML VIAL ONE (12:44)
[2021-10-06] MEDS ORDERED: Ondansetron PF 4 MG/2 ML Vial ONE (12:44)
[2021-10-06] MEDS ORDERED: Rocuronium Bromide 10 MG/ML (10ML VIAL) ONE (12:44)
[2021-10-06] MEDS ORDERED: PROPOFOL 200 MG/20 ML VIAL ONE (12:44)
[2021-10-06] MEDS ORDERED: Fentanyl 100 MCG/2 ML VIAL ONE ×3 (14:04→14:39)
[2021-10-06] MEDS ORDERED: Morphine 4 MG/ML VIAL ONE ×3 (14:09→14:48)
[2021-10-06] MEDS ORDERED: HYDROcodone/Acetaminophen 5/325 mg Tablet ONE (16:05)
== END 2021-10-06 17:14 | disposition home or self-care (01) ==
LOC: SDC 11:08
PROVIDERS: ATTEND Surgery
PROC: 0FT44ZZ Resection of Gallbladder, Percutaneous Endoscopic Approach (ICD-10-PCS; principal; 2021-10-06)
DX: K81.1 Chronic cholecystitis (principal); K66.0 Peritoneal adhesions (postprocedural) (postinfection); Z86.16 Personal history of COVID-19; Z86.711 Personal history of pulmonary embolism; Z86.73 Personal history of transient ischemic attack (TIA), and cerebral infarction without residual deficits; Z87.891 Personal history of nicotine dependence; Z79.01 Long term (current) use of anticoagulants; Z79.899 Other long term (current) drug therapy
CPT/HCPCS: 87070; 87205; 88304; C1713; J0694; J2250; J2270; J3010; S0020

== ENCOUNTER 2021-11-05 09:58 | Outpatient (CLI) | payer OTHER | END 2021-11-05 09:59 | disposition home or self-care (01) | LOC: DTY/OP 09:58 | PROVIDERS: ATTEND Family Medicine | DX: Z71.3 Dietary counseling and surveillance (principal) | CPT/HCPCS: 97802 ==

== ENCOUNTER 2022-04-12 17:30 | Outpatient (CLI) | payer BC, OTHER | END 2022-04-12 17:31 | disposition home or self-care (01) | LOC: SLEEPLAB 17:30 | PROVIDERS: ATTEND Family Medicine | DX: G47.33 Obstructive sleep apnea (adult) (pediatric) (principal); R53.83 Other fatigue; E66.9 Obesity, unspecified; R06.83 Snoring; F41.9 Anxiety disorder, unspecified; G47.00 Insomnia, unspecified; Z68.37 Body mass index [BMI] 37.0-37.9, adult | CPT/HCPCS: 95800 ==

== ENCOUNTER 2022-06-03 19:00 | Outpatient (CLI) | payer BC | END 2022-06-03 19:01 | disposition home or self-care (01) | LOC: SLEEPLAB 19:00 | PROVIDERS: ATTEND Family Medicine | DX: G47.33 Obstructive sleep apnea (adult) (pediatric) (principal); F41.9 Anxiety disorder, unspecified; R06.83 Snoring; G47.10 Hypersomnia, unspecified; G47.00 Insomnia, unspecified; E66.9 Obesity, unspecified; Z68.37 Body mass index [BMI] 37.0-37.9, adult | CPT/HCPCS: 95811 ==

== ENCOUNTER 2022-08-25 11:04 | Outpatient (CLI) | payer BC | END 2022-08-25 11:05 | disposition home or self-care (01) | LOC: ULT 11:04 | PROVIDERS: ATTEND Family Medicine | DX: M79.662 Pain in left lower leg (principal) ==

== ENCOUNTER 2023-05-09 13:12 | Outpatient (CLI) | payer BC | END 2023-05-09 13:13 | disposition home or self-care (01) | LOC: DTY/OP 13:12 | PROVIDERS: ATTEND Family Medicine | DX: E66.8 Other obesity (principal) | CPT/HCPCS: 97802 ==

== ENCOUNTER 2023-08-10 19:29 | Emergency (ER) | payer OTHER, BC ==
[2023-08-10] MEDS ORDERED: Meclizine HCl 25 MG TAB ONE (22:01)
[2023-08-10] MEDS ORDERED: Cyclobenzaprine 10 MG TAB ONE (22:01)
[2023-08-10] MEDS ORDERED: Ketorolac Tromethamine 30 MG/ML VIAL ONE (22:01)
== END 2023-08-10 22:39 | disposition home or self-care (01) ==
LOC: ERS 19:29
DX: M54.6 Pain in thoracic spine (principal); R51.9 Headache, unspecified
CPT/HCPCS: 96372; 99283; J1885